=== PATIENT | male | born 1960 | race Caucasian/White ===

== ENCOUNTER 2022-03-10 08:58 | Inpatient (IN) ==
[2022-03-10] MEDS ORDERED: Lactated Ringers 1000 ml BAG 1,000 ML IV ONE (09:42)
[2022-03-10 10:00] LABS: ABS Basophils 0.1 10^3/ul (0-0.2); ABS Eosinophils 0.1 10^3/ul (0-0.6); ABS Lymphocytes 2.2 10^3/ul (1.0-4.8); ABS Monocytes 1.2 10^3/ul (0-0.8); ABS Neutrophils 12.7 10^3/ul (1.5-7.7); Eosinophil % 0.4 %; Hematocrit 36 % (42-52); Hemoglobin 11.7 g/dL (14.0-18.0); Lymphocyte % 13.7 %; Mean Corpuscular HGB Conc 33 g/dL (31-36); Mean Corpuscular Hemoglobin 28 pg (27-31); Mean Corpuscular Volume 87 fL (80-94); Mean Platelet Volume 7.8 fL (7.4-10.4); Platelet Count 452 10^3/uL (150-450); Red Blood Count 4.17 10^6 /uL (4.18-5.48); Red Cell Distribution Width 16 % (10-15); White Blood Count 16.3 10^3/uL (3.5-10.8)
[2022-03-10] MEDS ORDERED: Benzocaine/Menthol LOZ PO ONE (10:11)
[2022-03-10] MEDS ORDERED: Morphine 4 MG/ML VIAL (1 ml) IV ONE (10:14)
[2022-03-10 10:38] LABS: Albumin 3.1 g/dL (3.2-5.2); CO2 Carbon Dioxide 24 mmol/L (22-32); Calcium 9.4 mg/dL (8.6-10.3); Chloride 100 mmol/L (101-111); Sodium 135 mmol/L (135-145)
[2022-03-10 10:41] LABS: Anion Gap 11 mmol/L (2-11)
[2022-03-10 10:44] LABS: ALT 16 U/L (7-52); Albumin/Globulin Ratio 0.8 (1-3); Alkaline Phosphatase 296 U/L (35-149); Blood Urea Nitrogen 19 mg/dL (6-24); Glucose 86 mg/dL (70-100); Total Protein 7.1 g/dL (6.4-8.9); eGFR CKD-EPI 87.7 (>60)
[2022-03-10] MEDS ORDERED: Lorazepam PYXIS KEY PRN (11:43)
[2022-03-10] MEDS ORDERED: Polyethylene Glycol 3350 17 GM PACKET PO PRN (11:44)
[2022-03-10] MEDS: LORazepam 2 mg VIAL 1 ml IV PUSH PRN (13:37)
[2022-03-10] MEDS: Enoxaparin 40 MG/0.4 ML SYR SUBCUT SCH (16:17)
[2022-03-10] MEDS: NS 0.9% 1000 ml BAG 1,000 ML IV SCH (17:04)
[2022-03-10] MEDS: Morphine 2 MG/ML SYRINGE IV PRN (17:05)
[2022-03-10] MEDS: Ondansetron 4 mg VIAL 2 MG/ML 2 ml VIAL IV PRN (17:05)
[2022-03-11] MEDS: Senna TAB 8.6 mg TAB PO SCH ×2 (00:20→20:21)
[2022-03-11] MEDS: Doxepin 10 mg CAP (NF) PO SCH ×2 (00:21→20:15)
[2022-03-11] MEDS: Morphine 2 MG/ML SYRINGE IV PRN ×5 (04:32→20:22)
[2022-03-11] MEDS: fentaNYL PATCH 50 MCG/HR 1 PATCH TRANSDERM SCH (08:11)
[2022-03-11] MEDS: Ondansetron 4 mg VIAL 2 MG/ML 2 ml VIAL IV PRN (11:13)
[2022-03-11] MEDS: NS 0.9% 1000 ml BAG 1,000 ML IV SCH (11:53)
[2022-03-11] MEDS: Enoxaparin 40 MG/0.4 ML SYR SUBCUT SCH (11:57)
[2022-03-11] MEDS: LORazepam 2 mg VIAL 1 ml IV PUSH PRN (13:43)
[2022-03-11] MEDS: fentaNYL Patch Check Q Shift NOTE FOLLOW UP SCH (18:58)
[2022-03-12] MEDS: fentaNYL Patch Check Q Shift NOTE FOLLOW UP SCH ×2 (06:47→19:06)
[2022-03-12] MEDS: Morphine 2 MG/ML SYRINGE IV PRN ×5 (09:15→22:29)
[2022-03-12] MEDS: LORazepam 2 mg VIAL 1 ml IV PUSH PRN ×2 (10:27→15:11)
[2022-03-12] MEDS ORDERED: CMC:Doxepin 10 mg CAP (NF) PO PRN (11:36)
[2022-03-12] MEDS: NS 0.9% 1000 ml BAG 1,000 ML IV SCH ×2 (12:20→18:17)
[2022-03-12] MEDS: Senna TAB 8.6 mg TAB PO SCH (22:29)
[2022-03-12] MEDS: Ondansetron 4 mg VIAL 2 MG/ML 2 ml VIAL IV PRN (22:29)
[2022-03-13] MEDS: Morphine 2 MG/ML SYRINGE IV PRN ×3 (02:10→21:28)
[2022-03-13] MEDS: LORazepam 2 mg VIAL 1 ml IV PUSH PRN ×4 (05:27→23:39)
[2022-03-13] MEDS: fentaNYL Patch Check Q Shift NOTE FOLLOW UP SCH ×2 (07:28→18:50)
[2022-03-13] MEDS: NS 0.9% 1000 ml BAG 1,000 ML IV SCH (13:06)
[2022-03-13] MEDS: Ondansetron 4 mg VIAL 2 MG/ML 2 ml VIAL IV PRN (21:38)
[2022-03-14] MEDS: Morphine 2 MG/ML SYRINGE IV PRN ×2 (02:15→12:42)
[2022-03-14] MEDS: fentaNYL Patch Check Q Shift NOTE FOLLOW UP SCH (07:18)
[2022-03-14] MEDS: fentaNYL PATCH 50 MCG/HR 1 PATCH TRANSDERM SCH (09:25)
[2022-03-14 11:08] VITALS: BP 108/69
[2022-03-14 11:56] LABS: Rapid COVID-19 Molecular Undetected (Undetected)
[2022-03-14] MEDS: LORazepam 2 mg VIAL 1 ml IV PUSH PRN (12:42)
== END 2022-03-14 13:00 | disposition hospice, inpatient (51) | DRG 862 ==
LOC: ED 08:58 → EDHOLD 11:28 → SSU 21:18
PROVIDERS: ADMIT Internal Medicine Medical Oncology; ATTEND Internal Medicine Medical Oncology